=== PATIENT | female | born 1965 | race Caucasian/White ===

== ENCOUNTER → 2017-03-12 | Outpatient (CLI) | payer OTHER ==
--- NOTE | 2017-03-12 14:33 | Diagnostic Imaging Report ---
INDICATION: History of recent injury to the fifth toe of the right foot. Persistent pain. COMPARISON: None. FINDINGS: 3 radiographic views of the right foot were obtained and demonstrate acute nondisplaced curvilinear transverse-oriented fracture involving the proximal margins of the fifth proximal phalanx. There is no intra-articular extension. There is overlying soft tissue swelling. No other acute-appearing bony abnormalities are seen. Other remaining joint spaces are maintained. IMPRESSION: Acute fracture of the fifth proximal phalanx of the right foot as described above. Report was called and faxed to Becky at office of [facility]IL[facility] Valdovinos, @ 2:31 PM/nikky. Dictated by: Dictated on workstation # [id number]
== END ==
LOC: RAD 13:23
PROVIDERS: ATTEND Nurse Practitioner Family
DX: S62.636A Displaced fracture of distal phalanx of right little finger, initial encounter for closed fracture (principal); X58.XXXA Exposure to other specified factors, initial encounter; Y99.8 Other external cause status
CPT/HCPCS: 73630